=== PATIENT | female | born 2005 | race Caucasian/White ===

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

== ENCOUNTER 2023-03-20 22:23 | Emergency (ER) | payer OTHER, MEDICAID ==
[~2023-03-20] VITALS: Ht 167.6 cm; Wt 60.0 kg
[~2023-03-20 22:23] MED LIST changes: +PHEN-716 PO
[2023-03-20 22:43] VITALS: BP 124/87
[2023-03-20] MEDS ORDERED: dexamethasone sod phosphate 10mg/ml inj PO STA (23:12)
[2023-03-20] MEDS ORDERED: BENZ1LOZ74 PO (23:12)
[2023-03-20] MEDS ORDERED: LIDO20SO16 PO (23:12)
[2023-03-20] MEDS ORDERED: ketorolac trometh inj. 60 MG/2 ML VIAL IM ONE (23:15)
== END 2023-03-20 23:31 | disposition home or self-care (01) ==
LOC: ER 22:23
DX: J02.9 Acute pharyngitis, unspecified (principal); Z91.041 Radiographic dye allergy status
CPT/HCPCS: 96372; 99283; J1100; J1885

== ENCOUNTER 2024-11-02 13:37 | Emergency (ER) | payer BC, OTHER ==
[~2024-11-02] VITALS: Ht 167.6 cm; Wt 88.6 kg
[~2024-11-02 13:37] MED LIST changes: +BENZ1LOZ74 PO; +LIDO20SO16 PO
[2024-11-02 13:44] VITALS: TEMP 98
[2024-11-02 19:20] VITALS: BP 115/74; PULSE 78; O2SAT 98
[2024-11-02 19:26] VITALS: RESP 16
== END 2024-11-02 19:28 | disposition home or self-care (01) ==
LOC: ER 13:38
DX: R07.89 Other chest pain (principal); Z91.041 Radiographic dye allergy status; Z79.899 Other long term (current) drug therapy
CPT/HCPCS: 71045; 71046; 93005; 99283